=== PATIENT | male | born 1940 | race Caucasian/White ===

== ENCOUNTER 2017-07-07 09:38 | Emergency (ER) | payer MEDICARE, OTHER ==
[2017-07-07 09:53] VITALS: BP 143/82
--- NOTE | 2017-07-07 10:07 | UC ---
Hip/Pelvis Pain - HPI Summary HPI Summary: Pt presents with right hip pain for months. He tells me that over the last 3-4 months he has had right hip pain, but over the last week it seems to be getting more bothersome. He points to his pain and is pointing to the trochanter. He denies injury or fall. He has not been taking anything for pain. He describes the pain as a sharp "catching" pain and grinding at times. Denies fever, chills , numbness, tingling, or radiation of pain. No bowel or bladder loss. No dysuria. - History Of Current Complaint Chief Complaint: UCLowerExtremity Stated Complaint: SORE R HIP Time Seen by Provider: 07/07/17 10:06 Hx Obtained From: Patient Timing: Constant Severity Initially: Mild Severity Currently: Mild Pain Intensity: 1 Pain Scale Used: 0-10 Numeric Character Of Pain: Sharp, Aching Aggravating Factor(s): Movement Alleviating Factor(s): Rest, Position - Allergies/Home Medications Allergies/Adverse Reactions: Allergies Allergy/AdvReac Type Severity Reaction Status Date / Time No Known Allergies Allergy Verified 07/07/17 09:53 Home Medications: Home Medications Disulfiram TAB* [Antabuse 250 MG TAB*] 250 mg PO DAILY 07/07/17 [History Confirmed 07/07/17] PMH/Surg Hx/FS Hx/Imm Hx Previously Healthy: Yes Psychological History: Anxiety, Depression - Surgical History Surgical History: Yes Surgery Procedure, Year, and Place: APPENDECTOMY AND TONSILLECTOMY A CHILD. 1995 EXCISION OF LEFT LE[place]ST, [facility] [place]/2015 BILATERAL CATARACT EXTRACTION WITH IOL IMPLANTS, [facility] [place] - Family History Known Family History: Positive: None - Social History Occupation: Retired Lives: With Family Alcohol Use: None Substance Use Type: None Smoking Status (MU): Former Smoker Type: Cigarettes Amount Used/How Often: 1 PPD Length of Time of Smoking/Using Tobacco: 18 YEARS Have You Smoked in the Last Year: No When Did the Patient Quit Smoking/Using Tobacco: 1974 - Immunization History Most Recent Influenza Vaccination: 04/2017 Review of Systems Constitutional: Negative Skin: Negative Respiratory: Negative Cardiovascular: Negative Gastrointestinal: Negative Genitourinary: Negative Neurovascular: Negative Musculoskeletal: Other: - Right hip pain Neurological: Negative Psychological: Negative All Other Systems Reviewed And Are Negative: Yes Physical Exam Triage Information Reviewed: Yes Appearance: Well-Appearing, Well-Nourished Vital Signs: Initial Vital Signs Temp 97.4 F 07/07/17 09:43 Pulse 71 07/07/17 09:43 Resp 16 07/07/17 09:43 BP 143/82 07/07/17 09:43 Pulse Ox 98 07/07/17 09:43 Vital Signs Reviewed: Yes Respiratory: Positive: Chest non-tender, Lungs clear, Normal breath sounds Cardiovascular: Positive: RRR, Pulses Normal Musculoskeletal: Positive: Strength Intact - B/L hips and LEs, ROM Intact - B/L hips and LEs, No Edema, Other: - Right hip: TTP over trochanter. KANCHAN positive hip pain on right. Negative SLR. No obvious bony deformities. Neurological: Positive: Alert, Muscle Tone Normal, Other: - L3-S1 sensations intact b/l LEs. Psychological: Positive: Age Appropriate Behavior Skin: Negative: rashes Hip Injury Course/Dx - Course Course Of Treatment: Hip XR: IMPRESSION: MODERATE OSTEOARTHRITIS. NO ACUTE FINDINGS. Suspect trochanteric bursitis vs arthritis. For now will treat with po NSAIDs and refer to orthopedics for potential steroid injections. - Differential Dx/Diagnosis Differential Diagnosis/HQI/PQRI: Arthritis, Bursitis, Dislocation, Fracture, Sprain, Strain Provider Diagnoses: Right hip arthritis Discharge - Discharge Plan Condition: Stable Disposition: HOME Prescriptions: Meloxicam 7.5 mg PO BID PRN #20 tab PRN Reason: Pain Patient Education Materials: Arthritis (ED) Referrals: Candice Duncan MD [Primary Care Provider] - Cale Ross MD [Medical Doctor] - If Needed Additional Instructions: If you develop a fever, SOB, chest pain, new or worsening symptoms - please call your PCP or go to the ED. Your blood pressure was high at todays visit. Please see your primary provider within 4 weeks for recheck and re-evaluation. Please call the number below to schedule a follow up with orthopedics for further evaluation of your right hip pain.
--- NOTE | 2017-07-07 10:44 | RAD ---
INDICATION: Atraumatic right hip pain COMPARISON: None TECHNIQUE: An AP view of the pelvis and AP views of the hip in neutral and abducted position were obtained FINDINGS: Bones: There are no acute bony findings. Joint spaces: There is moderate symmetric narrowing about both hip joint spaces with sclerosis about the acetabula and mild hypertrophic change. There is convexity along the lateral femoral head and neck which predisposes to impingement. The pelvic ring appears intact.. SI joints/symphysis: The SI joints and symphysis are intact. Other: None IMPRESSION: MODERATE OSTEOARTHRITIS. NO ACUTE FINDINGS.
== END 2017-07-07 11:05 | disposition home or self-care (01) ==
LOC: UCEAST 09:38
DX: M16.11 Unilateral primary osteoarthritis, right hip (principal); Z87.891 Personal history of nicotine dependence
CPT/HCPCS: 99211; G0463

== ENCOUNTER 2017-10-03 12:24 | Emergency (ER) | payer MEDICARE, OTHER ==
[2017-10-03 12:35] VITALS: BP 135/69
--- NOTE | 2017-10-03 16:57 | UC ---
Back Pain HPI - HPI Summary HPI Summary: 77 y/o male with h/o lower back pain due to stenosis, DJD hip OA seen by ortho , PCP, undergoing PT which he states helps, was taking meloxicam which was greatly helpful, but ran out. + sore, stiff this AM, feeling better now but still painful. no bladder, bowel loss. no radiculopathy symptoms, pain in R hip joint and lower back - History of Current Complaint Chief Complaint: UCBackPain Stated Complaint: BACK AND HIP PAIN Time Seen by Provider: 10/03/17 13:05 Hx Obtained From: Patient Onset/Duration: Sudden Onset, Lasting Days Timing: Lasting Hours Severity Initially: Moderate Severity Currently: Moderate Pain Intensity: 2 Pain Scale Used: 0-10 Numeric - Allergies/Home Medications Allergies/Adverse Reactions: Allergies Allergy/AdvReac Type Severity Reaction Status Date / Time No Known Allergies Allergy Verified 10/03/17 12:35 PMH/Surg Hx/FS Hx/Imm Hx Previously Healthy: No - h/o lower back pain, DJD - Surgical History Surgical History: Yes Surgery Procedure, Year, and Place: APPENDECTOMY AND TONSILLECTOMY A CHILD. 1995 EXCISION OF LEFT LEG CYST, [facility] [place]. 11/2015 BILATERAL CATARACT EXTRACTION WITH IOL IMPLANTS, [facility] – [place] - Family History Known Family History: Positive: None - Social History Alcohol Use: None Alcohol Amount: 2-3 glasses of wine/day Substance Use Type: None Smoking Status (MU): Former Smoker Type: Cigarettes Amount Used/How Often: 1 PPD Length of Time of Smoking/Using Tobacco: 18 YEARS Have You Smoked in the Last Year: No When Did the Patient Quit Smoking/Using Tobacco: 1974 - Immunization History Most Recent Influenza Vaccination: 04/2017 Review of Systems Constitutional: Negative Musculoskeletal: Arthralgia, Myalgia Neurological: Negative Psychological: Negative Is Patient Immunocompromised?: No All Other Systems Reviewed And Are Negative: Yes Physical Exam Triage Information Reviewed: Yes Appearance: Well-Appearing, No Pain Distress, Well-Nourished Vital Signs: Initial Vital Signs Temp 97.6 F 10/03/17 12:32 Pulse 80 10/03/17 12:32 Resp 18 10/03/17 12:32 BP 135/69 10/03/17 12:32 Pulse Ox 99 10/03/17 12:32 Vital Signs Reviewed: Yes Musculoskeletal: Positive: Strength Intact, ROM Intact, Other: - mild + log roll R exsternal, neg straight leg test, patellar reflex R 1, L 2, PT pulses 2+ , neg homans, hip FF- 130, abd 40 without pain, no tenderness to palpation over lumbar, sacral spine, no back tenderness. Back Pain Course/Dx - Course Course Of Treatment: lower back pain, OA R hip- continue meloxicam, follow up with PCP, steroids for severe pain - Differential Dx/Diagnosis Provider Diagnoses: lower back pain, R hip OA Discharge - Discharge Plan Condition: Good Disposition: HOME Prescriptions: Meloxicam 7.5 mg PO BID PRN #20 tab PRN Reason: Pain methylPREDNISolone [Medrol Dosepak 4 MG*] 0 mg PO .SEE ROSALVA INSTRUCTION #1 rosalva Patient Education Materials: Osteoarthritis (ED), Lower Back Exercises (ED) Referrals: Daylin Graham MD [Medical Doctor] - Candice Duncan MD [Primary Care Provider] - Additional Instructions: - Continue stretches as shown and with PT - FOllow up with primary for meloxicam refills, blood work as needed - STeroids to help decrease inflammation, pain - GO to ER with loss of bowel, bladder function
== END 2017-10-03 13:20 | disposition home or self-care (01) ==
LOC: UCEAST 12:24
DX: M54.5 Low back pain (principal); M16.11 Unilateral primary osteoarthritis, right hip; Z87.891 Personal history of nicotine dependence
CPT/HCPCS: 99212; G0463

== ENCOUNTER 2018-06-30 14:25 | Emergency (ER) | payer MEDICARE, OTHER ==
[2018-06-30 14:48] VITALS: BP 112/78
--- NOTE | 2018-07-01 08:00 | UC ---
- Progress Note Progress Note: There was no x-ray ordered June 30, 2018 therefore there is no discrepancy. Course/Dx - Diagnoses Provider Diagnoses: Patient left without being seen Discharge - Sign-Out/Discharge Documenting (check all that apply): Patient Departure All imaging exams completed and their final reports reviewed: No Studies - Discharge Plan Condition: Stable Disposition: LEFT WITHOUT BEING SEEN Referrals: Candice Duncan MD [Primary Care Provider] - - Billing Disposition and Condition Condition: STABLE Disposition: Left Without Being Seen
== END 2018-06-30 16:30 | disposition left against medical advice (07) ==
LOC: UCEAST 14:25
DX: M54.5 Low back pain (principal); Z53.21 Procedure and treatment not carried out due to patient leaving prior to being seen by health care provider
CPT/HCPCS: 99211; G0463

== ENCOUNTER 2018-07-11 09:57 | Emergency (ER) | payer MEDICARE, OTHER ==
[2018-07-11 10:04] VITALS: BP 137/86
--- NOTE | 2018-07-11 10:19 | UC ---
Cardiac HPI - HPI Summary HPI Summary: Patient is 78 year old gentleman, who present today to the urgent care with left-sided rib pain for past 2 days. He reports that was raking leaves and states he thinks he over did it and is now having pain to left lower ribs. Points to it to 10th rib area and rates the pain as 9/10 when it gets worse. It hurts to take a deep breath. He is able to lie down on the affected side and has not taken any medications yet. Denies any fever, chills, cough. Denies any abdominal pain , nausea or vomiting , diarrhea or constipation. - History of Current Complaint Chief Complaint: UCUpperExtremity Stated Complaint: RIB PAIN Time Seen by Provider: 07/11/18 10:01 Hx Obtained From: Patient Pain Intensity: 9 - Allergy/Home Medications Allergies/Adverse Reactions: Allergies Allergy/AdvReac Type Severity Reaction Status Date / Time No Known Allergies Allergy Verified 07/11/18 10:04 PMH/Surg Hx/FS Hx/Imm Hx - Additional Past Medical History Additional PMH: Anxiety Depression ADHD Well controlled on Prozac and Wellbutrin Previously Healthy: Yes - Surgical History Surgical History: Yes Surgery Procedure, Year, and Place: APPENDECTOMY AND TONSILLECTOMY A CHILD. 1995 EXCISION OF LEFT LEG CYST, [facility] [place]. 11/2015 BILATERAL CATARACT EXTRACTION WITH IOL IMPLANTS, [facility] [place] - Family History Known Family History: Positive: None - Social History Alcohol Use: Daily Alcohol Amount: 2-3 glasses of wine/day Substance Use Type: None Smoking Status (MU): Former Smoker Type: Cigarettes Amount Used/How Often: 1 PPD Length of Time of Smoking/Using Tobacco: 18 YEARS Have You Smoked in the Last Year: No When Did the Patient Quit Smoking/Using Tobacco: 1974 - Immunization History Most Recent Influenza Vaccination: 04/2017 Review of Systems All Other Systems Reviewed And Are Negative: Yes Constitutional: Positive: Negative Skin: Positive: Negative Eyes: Positive: Negative ENT: Positive: Negative Respiratory: Positive: Shortness Of Breath - hurts to take a deep breath Cardiovascular: Positive: Chest Pain - Localized to 8-10 tripped on left side Gastrointestinal: Positive: Negative Genitourinary: Positive: Negative Motor: Positive: Negative Neurovascular: Positive: Negative Musculoskeletal: Positive: Negative Neurological: Positive: Negative Psychological: Positive: Negative Is Patient Immunocompromised?: No Physical Exam - Summary Physical Exam Summary: Physical Exam: Const: Appears well. No signs of apparent distress present. Alert and oriented x 3. Musculo: Walks with a normal gait. Head/Face: Atraumatic, normocephalic on inspection. Eyes: EOMI and PERRLA in both eyes. Conjunctivae clear. No discharge noted ENT: Hearing normal. Respiratory: Respirations are unlabored- his comfort with deep inspiration. Lungs clear to auscultation bilaterally, no wheezing , rhonchi or rales noted . There is tenderness to palpation on the anterior aspect of the eighth to 10th rib, most tenderness is noted at the 10th rib but he is also tender in the intercostal areas. CVS: Regular rate and Rhythm, S1S2 normal , no murmurs identified. Extremities: Peripheral circulation is grossly normal. Pulses 2+ Abdomen : Soft non tender , nondistended , Bowel sounds present . No guarding , rebound tenderness or rigidity noted. Skin: No lesions or rash located on the upper extremities or on the lower extremities. Neuro: Cranial nerves II to XII intact, motor and sensory intact. DTR Intact bilaterally. Mood is normal. Affect is normal. Triage Information Reviewed: Yes Vital Signs: Initial Vital Signs Temp 98.0 F 07/11/18 10:02 Pulse 97 07/11/18 10:02 Resp 18 07/11/18 10:02 BP 137/86 07/11/18 10:02 Pulse Ox 98 07/11/18 10:02 Vital Signs Reviewed: Yes Diagnostics - Radiology No standard instances Radiology Interpretation Completed By: Radiologist - X-ray of the chest and the left ribs: DISPLACED FRACTURES OF THE LEFT EIGHTH AND NINTH RIBS WITHOUT APPRECIABLE PNEUMOTHORAX. - Assessment/Plan Course Of Treatment: During the visit today, we obtained x-ray of the rib and the chest to rule out any fracture . X-ray of the left rib and chest: DISPLACED FRACTURES OF THE LEFT EIGHTH AND NINTH RIBS WITHOUT APPRECIABLE PNEUMOTHORAX. I also spoke to Dr. gil, fracture is about 30% displaced. Incentive spirometer provided to him today for breathing exercises. He will follow-up with his primary doctor in 2 days. He was advised to call [phone] images today if he develops any chest pain or shortness of breath. We discussed the findings which appeared to be consistent with intercostal strain and further plan. We discussed that he should take Tylenol or ibuprofen for pain relief and ice the area locally. He should continue to do breathing exercises. - Clinical Impression Provider Diagnosis: Left rib fracture Discharge - Sign-Out/Discharge Documenting (check all that apply): Patient Departure All imaging exams completed and their final reports reviewed: Yes - Discharge Plan Condition: Stable Disposition: HOME Patient Education Materials: Rib Fracture (ED) Referrals: Candice Duncan MD [Primary Care Provider] - 2 Days Additional Instructions: Please take ibuprofen or Tylenol as needed for pain Ice the area locally, 15 minutes at a time 3-4 times a day. Breathing exercises as discussed. Follow up with your primary care doctor in 2 days Return to Urgent care / ER if symptoms get worse. - Billing Disposition and Condition Condition: STABLE Disposition: Home
== END 2018-07-11 11:30 | disposition home or self-care (01) ==
LOC: UCEAST 09:57
DX: S22.42XA Multiple fractures of ribs, left side, initial encounter for closed fracture (principal); F90.9 Attention-deficit hyperactivity disorder, unspecified type; F41.9 Anxiety disorder, unspecified; F32.9 Major depressive disorder, single episode, unspecified; Z79.899 Other long term (current) drug therapy; Z87.891 Personal history of nicotine dependence
CPT/HCPCS: 99211; G0463

== ENCOUNTER 2018-07-12 11:32 | Emergency (ER) | payer MEDICARE, OTHER ==
[2018-07-12 11:50] VITALS: BP 135/71
--- NOTE | 2018-07-12 11:50 | UC ---
Truncal Trauma HPI - HPI Summary HPI Summary: 78 yo male presents with continued pain. He tells me that yesterday he was seen here and dx'd with rib fractures. Report is: X-ray of the left rib and chest: DISPLACED FRACTURES OF THE LEFT EIGHTH AND NINTH RIBS WITHOUT APPRECIABLE PNEUMOTHORAX. He was advised to take ibuprofen and tylenol for his discomfort. He was also provided with an incentive spirometer which he has been using. He has been taking ibuprofen with little relief. He had difficulty sleeping last night due to pain and trying to get comfortable. He denies any SOB, increased coughing, or cardiac type chest pain. - History Of Current Complaint Stated Complaint: RECHECK OF RIB FRACTURES Time Seen by Provider: 07/12/18 11:49 Hx Obtained From: Patient Onset/Duration: Sudden Onset Severity Initially: Moderate Severity Currently: Moderate Pain Intensity: 5 Pain Scale Used: 0-10 Numeric - Allergies/Home Medications Allergies/Adverse Reactions: Allergies Allergy/AdvReac Type Severity Reaction Status Date / Time No Known Allergies Allergy Verified 07/12/18 11:50 Home Medications: Home Medications Ibuprofen TAB* [Motrin TAB* 600 MG] 600 mg PO Q6H PRN 07/12/18 [History Confirmed 07/12/18] PMH/Surg Hx/FS Hx/Imm Hx Psychological History: Anxiety, Depression - Surgical History Surgical History: Yes Surgery Procedure, Year, and Place: APPENDECTOMY AND TONSILLECTOMY A CHILD. 1995 EXCISION OF LEFT LEG CYST, [facility] [place]. 11/2015 BILATERAL CATARACT EXTRACTION WITH IOL IMPLANTS, [facility] [place] - Family History Known Family History: Positive: None - Social History Occupation: Retired Lives: With Family Alcohol Use: Daily Alcohol Amount: 2-3 glasses of wine/day Substance Use Type: None Smoking Status (MU): Former Smoker Type: Cigarettes Amount Used/How Often: 1 PPD Length of Time of Smoking/Using Tobacco: 18 YEARS Have You Smoked in the Last Year: No When Did the Patient Quit Smoking/Using Tobacco: 1974 - Immunization History Most Recent Influenza Vaccination: 04/2017 Review of Systems All Other Systems Reviewed And Are Negative: Yes Constitutional: Positive: Negative Skin: Positive: Negative Respiratory: Positive: Negative Cardiovascular: Positive: Negative Gastrointestinal: Positive: Negative Neurovascular: Positive: Negative Musculoskeletal: Positive: Other: - Left rib pain Neurological: Positive: Negative Psychological: Positive: Negative Physical Exam - Summary Physical Exam Summary: GENERAL: NAD. WDWN. No pain distress. SKIN: No rashes, sores, lesions, or open wounds. NECK: Supple. Nontender. No lymphadenopathy. CHEST: CTAB. No r/r/w. No accessory muscle use. Breathing comfortably and in no distress. TTP at left anterior ribs ~8th. CV: Pulses intact. Cap refill <2seconds ABDOMEN: Soft. NTTP. No distention or guarding. Bowel sounds present NEURO: Alert. PSYCH: Age appropriate behavior. Triage Information Reviewed: Yes Vital Signs: Initial Vital Signs Temp 98.1 F 07/12/18 11:46 Pulse 73 07/12/18 11:46 Resp 16 07/12/18 11:46 BP 135/71 07/12/18 11:46 Pulse Ox 99 07/12/18 11:46 Vital Signs Reviewed: Yes Truncal Trauma Course/Dx - Course Course Of Treatment: Will have him keep taking ibuprofen and will have him add a lidoderm patch daily. Rx for norco to be used sparingly for severe pain or difficulty sleeping dt pain. Strongly advised he make a f/u appt with his PCP for later this week for a recheck of his discomfort. - Differential Dx/Diagnosis Provider Diagnosis: Left rib fracture Discharge - Sign-Out/Discharge Documenting (check all that apply): Patient Departure All imaging exams completed and their final reports reviewed: No Studies - Discharge Plan Condition: Stable Disposition: HOME Prescriptions: HYDROcodone/ACETAMIN 5-325 MG* [[place] 5-325 TAB*] 1 tab PO BID PRN #6 tab MDD 2 PRN Reason: Pain Lidocaine PATCH 5%* [Lidoderm 5% Patch*] 1 patch TRANSDERM DAILY PRN #1 box PRN Reason: Pain Patient Education Materials: Rib Fracture (ED) Referrals: Candice Duncan MD [Primary Care Provider] - 1 Week Additional Instructions: If you develop a fever, shortness of breath, chest pain, new or worsening symptoms - please call your PCP or go to the ED. 1) Continue taking ibuprofen 2) Use the pain patch for pain relief and try not to use the [place] oral pain medication unless needed 3) Schedule a follow up appointment for this week with your Primary Doctor for a recheck - Billing Disposition and Condition Condition: STABLE Disposition: Home - Attestation Statements Provider Attestation: I was available for consult. This patient was seen by the [facility]. The patient was not presented to, seen by, or examined by me. -Kesha
== END 2018-07-12 12:05 | disposition home or self-care (01) ==
LOC: UCEAST 11:32
DX: Z51.89 Encounter for other specified aftercare (principal); S22.32XD Fracture of one rib, left side, subsequent encounter for fracture with routine healing; Z87.891 Personal history of nicotine dependence
CPT/HCPCS: 99212; G0463

== ENCOUNTER 2018-11-26 13:52 | Emergency (ER) | payer MEDICARE, OTHER ==
[2018-11-26] MEDS ORDERED: Acetaminophen TAB* 325 MG PO ONE (14:40)
--- NOTE | 2018-11-26 15:06 | UC ---
Shoulder Pain HPI - HPI Summary HPI Summary: 78 yo male present with what he thinks is muscular right shoulder pain States he was using a wheelbarrow all morning. He went inside to shower He developed pain in region of right lateral scapula radiating to axilla and medial right arm pain is spasmotic his arm has certain areas that are tender to touch no CP No SOB No n/v no abd pain No f/c - History of Current Complaint Chief Complaint: UCBackPain Stated Complaint: RT SHOULDER PAIN Time Seen by Provider: 11/26/18 13:55 Onset/Duration: Sudden Onset Timing: Hours Severity Initially: Severe Severity Currently: Severe Location Of Pain: Is Discrete @ - see image, Radiates To - right medal arm Pain Intensity: 7 Pain Scale Used: 0-10 Numeric Character: Throbbing, Spasmodic Aggravating Factor(s): Other - touch Alleviating Factor(s): Nothing Associated Signs And Symptoms: Negative: Swelling, Redness, Bruising, Fever, Weakness, Numbness/Tingling Related History: Dominant Hand Right Torso: 1 - tender 2 - tender - Allergies/Home Medications Allergies/Adverse Reactions: Allergies Allergy/AdvReac Type Severity Reaction Status Date / Time No Known Allergies Allergy Verified 07/12/18 11:50 Home Medications: Home Medications Cholecalciferol TAB* [Vitamin D TAB*] 1,000 unit PO DAILY 11/26/18 [History Confirmed 11/26/18] PMH/Surg Hx/FS Hx/Imm Hx Previously Healthy: Yes Psychological History: Depression - Surgical History Surgical History: Yes Surgery Procedure, Year, and Place: APPENDECTOMY AND TONSILLECTOMY A CHILD. 1995 EXCISION OF LEFT LEG CYST, [facility] [place]. 11/2015 BILATERAL CATARACT EXTRACTION WITH IOL IMPLANTS, [facility] [place] - Family History Known Family History: Positive: None, Non-Contributory - Social History Alcohol Use: Daily Alcohol Amount: 2-3 glasses of wine/day Substance Use Type: None Smoking Status (MU): Former Smoker Type: Cigarettes Amount Used/How Often: 1 PPD Length of Time of Smoking/Using Tobacco: 18 YEARS Have You Smoked in the Last Year: No When Did the Patient Quit Smoking/Using Tobacco: 1974 - Immunization History Most Recent Influenza Vaccination: 04/2017 Review of Systems All Other Systems Reviewed And Are Negative: Yes Constitutional: Positive: Negative Skin: Positive: Negative Eyes: Positive: Negative ENT: Positive: Negative Respiratory: Positive: Negative Cardiovascular: Positive: Negative Gastrointestinal: Positive: Negative Genitourinary: Positive: Negative Motor: Positive: Negative Neurovascular: Positive: Negative Musculoskeletal: Positive: Myalgia - see image Neurological: Positive: Negative Psychological: Positive: Negative Physical Exam Triage Information Reviewed: Yes Appearance: Well-Appearing, No Pain Distress, Well-Nourished Vital Signs: Initial Vital Signs Temp 98.6 F 11/26/18 13:58 Pulse 74 11/26/18 13:58 Resp 19 11/26/18 13:58 BP 189/89 11/26/18 13:58 Pulse Ox 96 11/26/18 13:58 Vital Signs Reviewed: Yes Eyes: Positive: Conjunctiva Clear ENT: Positive: Hearing grossly normal. Negative: Nasal congestion, Nasal drainage, Trismus, Muffled voice, Hoarse voice Dental: Positive: Percussion Tenderness @ Neck: Positive: Supple, Nontender, No Lymphadenopathy, Other: - no bruits Respiratory: Positive: Lungs clear, Normal breath sounds, No respiratory distress, No accessory muscle use Cardiovascular: Positive: RRR, No Murmur, Pulses Normal Abdomen Description: Positive: Nontender, No Organomegaly, Soft Bowel Sounds: Positive: Present Musculoskeletal: Positive: ROM Intact, No Edema, Other: - see image for tender areas Neurological: Positive: Alert Psychological Exam: Normal Skin Exam: Normal Diagnostics - Radiology No standard instances Radiology Interpretation Completed By: Radiologist Summary of Radiographic Findings: OSTEOARTHRITIS. NO ACUTE OSSEOUS INJURY. IF SYMPTOMS PERSIST, RECOMMEND REPEAT IMAGING. - EKG Cardiac Rate: NL Cardiac Rhythm: Sinus: Normal ST Segment: Normal Shoulder Course/Dx - Course Course Of Treatment: 2Nd EKG- Normal - Differential Dx/Diagnosis Provider Diagnosis: Muscle strain of right scapular region, Elevated BP without diagnosis of hypertension Discharge - Sign-Out/Discharge Documenting (check all that apply): Patient Departure All imaging exams completed and their final reports reviewed: Yes - Discharge Plan Condition: Stable Disposition: HOME Patient Education Materials: Muscle Strain (ED) Referrals: Candice Duncan MD [Primary Care Provider] - 3 Days Additional Instructions: take another aleve when you get home then 1-2 aleve twice daily for pain To ER for new or worsening symptoms - Billing Disposition and Condition Condition: STABLE Disposition: Home
[2018-11-26 15:14] VITALS: BP 170/76
== END 2018-11-26 15:54 | disposition home or self-care (01) ==
LOC: UCEAST 13:52
DX: S46.811A Strain of other muscles, fascia and tendons at shoulder and upper arm level, right arm, initial encounter (principal); R03.0 Elevated blood-pressure reading, without diagnosis of hypertension; M19.011 Primary osteoarthritis, right shoulder; X50.9XXA Other and unspecified overexertion or strenuous movements or postures, initial encounter; Z87.891 Personal history of nicotine dependence
CPT/HCPCS: 99212; A9270-GY; G0463

== ENCOUNTER 2018-11-27 10:53 | Emergency (ER) | payer MEDICARE, OTHER ==
--- NOTE | 2018-11-27 11:12 | ED ---
Upper Extremity Pain - HPI Summary HPI Summary: This patient is a 78 year old male presenting to [facility] with a chief complaint of right shoulder pain one day ago. He states he was working in his garden moving around when he felt the pain. He thinks it may be a muscle pull. He says the pain is in his "shoulder blade" and will radiate to his upper arm and sometimes lower arm. He denies chest pain, neck pain,lower extremity pains, SI, HI, and shortness of breath. The patient has a Hx of left shoulder replacement. The patient states he may have taken too may painkillers, acetomenaphine and ibuprofen. In room BP is 163/100, HR is 75 BPM. Patient was seen at [facility] yesterday. He received a right scapula XR osteoarthritis , with an impression of no acute osseous injury. His vital signs yesterday were 189/89 HR 74. Vitamin B12 FLUoxetine CAP* [PROzac CAP*] 10 mg PO QAM 07/26/15 [History Confirmed 11/26/18] buPROPion HCl [Wellbutrin Sr] 300 mg PO QPM 11/27/15 [History Confirmed 11/26/18 ] Cholecalciferol TAB* [Vitamin D TAB*] 1,000 unit PO DAILY 11/26/18 [History Confirmed 11/26/18] - History of Current Complaint Chief Complaint: EDExtremityUpper Stated Complaint: BACK, SHOULDER PAIN PER PT Time Seen by Provider: 11/27/18 10:56 Hx Obtained From: Patient Onset/Duration: Started Hours Ago Timing: Constant Severity Initially: Mild Severity Currently: None Pain Location: Shoulder, Arm Alleviating Factor(s): OTC Meds - Allergies/Home Medications Allergies/Adverse Reactions: Allergies Allergy/AdvReac Type Severity Reaction Status Date / Time No Known Allergies Allergy Verified 11/27/18 10:58 PMH/Surg Hx/FS Hx/Imm Hx Endocrine/Hematology History: Denies: Hx Diabetes, Hx Thyroid Disease Cardiovascular History: Denies: Hx Hypertension, Hx Pacemaker/ICD Respiratory History: Denies: Hx Asthma, Hx Chronic Obstructive Pulmonary Disease (COPD) GI History: Denies: Hx Ulcer History: Denies: Hx Renal Disease Musculoskeletal History: Reports: Other Musculoskeletal History - CYST LEFT KNEE Sensory History: Reports: Hx Cataracts - HX OF, Hx Contacts or Glasses - GLASSES , Hx Hearing Aid - BILATERAL Opthamlomology History: Reports: Hx Cataracts - HX OF, Hx Contacts or Glasses - GLASSES Psychiatric History: Reports: Hx Anxiety - CONTROL WITH MED, Hx Depression - CONTROL WITH MEDS Denies: Hx Panic Disorder - Surgical History Surgery Procedure, Year, and Place: APPENDECTOMY AND TONSILLECTOMY A CHILD. 1995 EXCISION OF LEFT LEG CYST, [facility]. 11/2015 BILATERAL CATARACT EXTRA[place] [facility] [place] Hx Anesthesia Reactions: No Infectious Disease History: No Infectious Disease History: Denies: Hx Clostridium Difficile, Hx Hepatitis, Hx Human Immunodeficiency Virus (HIV), Hx of Known/Suspected MRSA, Hx Shingles, Hx Tuberculosis, Hx Known/ Suspected VRE, Hx Known/Suspected VRSA, History Other Infectious Disease, Traveled Outside the [place] in Last 30 Days - Family History Known Family History: Positive: Other - Parkinsons disease-mother Leukemia- Father Negative: Hypertension - Social History Alcohol Use: Daily Alcohol Amount: 2-3 glasses of wine/day Substance Use Type: Reports: None Smoking Status (MU): Former Smoker Type: Cigarettes Amount Used/How Often: 1 PPD Length of Time of Smoking/Using Tobacco: 18 YEARS Have You Smoked in the Last Year: No Review of Systems Negative: Chest Pain Negative: Shortness Of Breath Positive: Other - Right Shoulder/arm pain, Denies all other pain. Positive: Other - Denies HI, SI All Other Systems Reviewed And Are Negative: Yes Physical Exam - Summary Physical Exam Summary: Appearance: Ill-appearing, moderate pain distress, well-nourished Skin: Warm, color reflects adequate perfusion, dry. Healing abrasions on his nose and dorsal left forearm. Head: Normal Head/Face inspection, atraumatic Eyes: Conjunctiva clear ENT: Normal inspection Neck: Supple, no nodes, no JVD Respiratory: Lungs clear, normal breath sounds, no respiratory distress. Slightly increased tenderness with deep breaths. Cardio: RRR, No murmur, pulses normal, brisk capillary refill Abdomen: Soft, nontender Bowel sounds: Present Musculoskeletal: Strength Intact/ROM intact, no calf tenderness, no edema.Slightly increased right shoulder A.C. joint tenderness with deep breaths. Psychological: Normal Neuro: Alert, muscle tone normal, no focal deficit Triage Information Reviewed: Yes Vital Signs On Initial Exam: Initial Vitals Temp Pulse Resp BP Pulse Ox 98.0 F 80 14 164/100 97 11/27/18 10:55 11/27/18 10:55 11/27/18 10:55 11/27/18 10:55 11/27/18 10:55 Vital Signs Reviewed: Yes Diagnostics - Vital Signs Vital Signs Temp Pulse Resp BP Pulse Ox 11/27/18 10:55 98.0 F 80 14 164/100 97 - Laboratory Result Diagrams: 11/27/18 11:30 11/27/18 11:30 Lab Statement: Any lab studies that have been ordered have been reviewed, and results considered in the medical decision making process. - Radiology CXR Radiology Interpretation Completed By: Radiologist Summary of Radiographic Findings: CXR reveals no evidence for active cardiopulmonary disease. ED Provider has reviewed this report. Rt Shoulder XR Radiology Interpretation Completed By: Radiologist Summary of Radiographic Findings: Right Shoulder XR reveals severe osteoarthritic change in the glenohumaral joint. ED Provider has reviewed this report. Re-Evaluation - Re-Evaluation First Eval Re-Evaluation Time: 13:48 Change: Improved Comment: Discussed plan for discharge with patient. BP 160/108, HR 86, pain has improved after IV medication. Course/Dx - Course Course Of Treatment: This patient is a 78 year old male presenting to [facility] with a chief complaint of right shoulder pain one day ago. Vital signs reviewed. Medications reviewed. Labs reveal Hct 41 L, MCV 99 H, MCH 34 H, Absolute Lymphs (auto) 0.9 L, Total Creatine Kinase 224 H, CK-MB (CK-2) 6.7 H, B -Natriuretic Peptide 103 H, Urine Blood 1+ A. Right Shoulder XR reveals severe osteoarthritic change in the glenohumaral joint. CXR reveals no evidence for active cardiopulmonary disease. Patient was administered 30 mg Toradol via IV to manage pain. Patient was given metropolol succinate 50 MG PO and a plan for discharge was discussed with the patient and he was instructed to return to the emergency department with any new or worsening symptoms. The patient was agreeable with this plan. - Diagnoses Provider Diagnoses: Osteoarthritis of right shoulder, Elevated blood pressure reading without diagnosis of hypertension Discharge - Sign-Out/Discharge Documenting (check all that apply): Patient Departure - Discharge Patient Received Moderate/Deep Sedation with Procedure: No - Discharge Plan Condition: Stable Disposition: HOME Patient Education Materials: Osteoarthritis (ED) Referrals: Candice Duncan MD [Primary Care Provider] - Additional Instructions: Return to the emergency department for new or worsening symptoms. - Attestation Statements Document Initiated by Scribe: Yes Documenting Scribe: John Nuno Provider For Whom Scribe is Documenting (Include Credential): No Rodriguez MD Scribe Attestation: John Chambers, scribed for No Rodriguez MD on 11/27/18 at 1332. Status of Scribe Document: Ready
[2018-11-27] MEDS ORDERED: Ketorolac INJ* 30 MG/ML 1 ML VIAL IV PUSH ONE (11:18)
[2018-11-27 11:43] LABS: ABS Lymphocytes 0.9 10^3/ul (1.0-4.8); ABS Monocytes 0.5 10^3/ul (0-0.8); ABS Neutrophils 3.2 10^3/ul (1.5-7.7); Eosinophil % 0.2 %; Hematocrit 41 % (42-52); Hemoglobin 14.3 g/dL (14.0-18.0); Lymphocyte % 19.5 %; Mean Corpuscular HGB Conc 35 g/dL (31-36); Mean Corpuscular Hemoglobin 34 pg (27-31); Mean Corpuscular Volume 99 fL (80-94); Mean Platelet Volume 7.5 fL (7.4-10.4); Nucleated Red Blood Cells % 0.1; Platelet Count 215 10^3/uL (150-450); Red Blood Count 4.19 10^6 /uL (4.18-5.48); Red Cell Distribution Width 14 % (10.5-15); White Blood Count 4.7 10^3/uL (3.5-10.8)
[2018-11-27 11:59] LABS: Activated Partial Thrombo Time 27.6 seconds (26.0-36.3); INR 0.87 (0.82-1.09)
[2018-11-27 12:03] LABS: ALT 17 U/L (7-52); AST 28 U/L (13-39); Albumin 4.2 g/dL (3.2-5.2); Albumin/Globulin Ratio 1.8 (1-3); Alkaline Phosphatase 58 U/L (34-104); Anion Gap 7 mmol/L (2-11); BUN/Creatinine Ratio 19.3 (8-20); Blood Urea Nitrogen 16 mg/dL (6-24); CO2 Carbon Dioxide 28 mmol/L (22-32); Calcium 9.6 mg/dL (8.6-10.3); Chloride 101 mmol/L (101-111); Creatine Kinase 224 U/L (10-223); EGFR African American 107.9 (>60); EGFR Non-African American 89.1 (>60); Globulin 2.4 g/dL (2-4); Glucose 138 mg/dL (70-100); Magnesium 2.1 mg/dL (1.9-2.7); Potassium 4.4 mmol/L (3.5-5.0); Sodium 136 mmol/L (135-145); Total Protein 6.6 g/dL (6.4-8.9)
[2018-11-27 12:04] LABS: Alcohol < 10 mg/dL (<10); CKMB ng/mL 6.7 ng/mL (0.6-6.3)
[2018-11-27 12:16] LABS: Urine Appearance Clear; Urine Bacteria Absent (Absent); Urine Bilirubin Negative (Negative); Urine Blood 1+ (Negative); Urine Color Yellow; Urine Glucose Negative (Negative); Urine Ketones Negative (Negative); Urine Nitrite Negative (Negative); Urine Protein Negative (Negative); Urine Red Blood Cell Trace(0-2/hpf) (Absent); Urine Urobilinogen Negative (Negative); Urine White Blood Cell Absent (Absent)
[2018-11-27] MEDS ORDERED: Metoprolol Succinate XL TAB* 50 MG PO ONE (13:55)
[2018-11-27 14:09] VITALS: BP 144/102
== END 2018-11-27 14:08 | disposition home or self-care (01) ==
LOC: ED 10:53
DX: M19.011 Primary osteoarthritis, right shoulder (principal); R03.0 Elevated blood-pressure reading, without diagnosis of hypertension; F41.9 Anxiety disorder, unspecified; F32.9 Major depressive disorder, single episode, unspecified; R94.31 Abnormal electrocardiogram [ECG] [EKG]; Z79.899 Other long term (current) drug therapy; Z87.891 Personal history of nicotine dependence
CPT/HCPCS: 36415; 71045; 80053; 80320; 81003; 81015; 82550; 82553; 83605; 83735; 83880; 84484; 85025; 85379; 85610; 85730; 93005; 96374; 99283; A9270-GY; G0480; J1885

== ENCOUNTER 2019-03-03 09:59 | Emergency (ER) | payer MEDICARE, OTHER ==
[2019-03-03 10:08] VITALS: BP 138/89
--- NOTE | 2019-03-03 10:31 | UC ---
Lower Extremity/Ankle HPI - HPI Summary HPI Summary: 79 year old male with no PMH, denies DM, denies poor wound healing- presents with laceration after stepping down onto a step that had a rough edge, cutting into his posterior heel, that occurred ~ 2 weeks ago while visiting [place]- patient was caring for dying and was unable to attend to his wound. Denies pain, ambulatory well, no fever, chills. Patient denies weakness, numbness. + drainage- yellow, + redness around site. UTD on tetanus per patient. - History of Current Complaint Chief Complaint: UCSkin Stated Complaint: LT HEEL LAC Time Seen by Provider: 03/03/19 10:16 Hx Obtained From: Patient Onset/Duration: Sudden Onset, Lasting Weeks - 2 weeks ago Severity Initially: Mild Severity Currently: Mild Pain Intensity: 2 Pain Scale Used: 0-10 Numeric Aggravating Factor(s): Nothing Alleviating Factor(s): Rest Able to Bear Weight: No - Allergies/Home Medications Allergies/Adverse Reactions: Allergies Allergy/AdvReac Type Severity Reaction Status Date / Time No Known Allergies Allergy Verified 03/03/19 10:08 PMH/Surg Hx/FS Hx/Imm Hx Previously Healthy: Yes - Surgical History Surgical History: Yes Surgery Procedure, Year, and Place: APPENDECTOMY AND TONSILLECTOMY A CHILD. [place] [facility] [place]IL[place]AL [place] [facility] [place] [facility] [place] Left [place] replacement - Family History Known Family History: Positive: None, Other - Parkinson's disease-mother; Leukemia- Father, Non-Contributory Negative: Hypertension - Social History Alcohol Use: Daily Alcohol Amount: 2-3 glasses of wine/day Substance Use Type: None Smoking Status (MU): Former Smoker Type: Cigarettes Amount Used/How Often: 1 PPD Length of Time of Smoking/Using Tobacco: 18 YEARS Have You Smoked in the Last Year: No When Did the Patient Quit Smoking/Using Tobacco: 1974 - Immunization History Most Recent Influenza Vaccination: 04/2017 Review of Systems All Other Systems Reviewed And Are Negative: Yes Constitutional: Positive: Negative Skin: Positive: Other - drainage from laceration site Musculoskeletal: Negative: Arthralgia, Decreased ROM, Edema, Myalgia Is Patient Immunocompromised?: No Physical Exam Triage Information Reviewed: Yes Appearance: Well-Appearing, No Pain Distress, Well-Nourished Vital Signs: Initial Vital Signs Temp 98 F 03/03/19 10:04 Pulse 77 03/03/19 10:04 Resp 16 03/03/19 10:04 BP 138/89 03/03/19 10:04 Pulse Ox 100 03/03/19 10:04 Vital Signs Reviewed: Yes Eyes: Positive: Conjunctiva Clear Musculoskeletal: Positive: Strength Intact, ROM Intact - AROM/ PROM of L foot, ankle without pain. neg homans. neg achillies testing., Edema @ - minimal posterior calc. Neurological: Positive: Alert, Other: - SITLT distal to ankle, L foot Psychological Exam: Normal Skin: Positive: Other - ~ 3cm laceration posterior ankle just below achillies insertion, non-tender to touch, + mild edema around incision with light erythema. minimal serous drainge noted. Lower Extremity Course/Dx - Course Course Of Treatment: radiograph: Patient Name: JOSE ESPINOZA III Medical Record#: [id number] Ordering Physician: Christie BOX Acct.#: [id number] : 1940 Age: 79 Sex: M Location: [facility] Exam Date: 03/03/19 1023 ADM Status: REG ER Order Information: ANKLE LEFT 3+VWS Accession Number: [id number] CPT: 64324 Indication: Left heel evaluation. 3 views of the left ankle is reviewed. Ankle mortise is intact. There is a focal defect in the skin at the dorsal aspect of the calcaneus. No abnormal erosions are noted. IMPRESSION: No abnormal erosions are noted. Soft tissue defect is noted in the dorsal aspect of the heel. - Radiograph negative. - Follow up with orthopedics for continued management- within 3-5 days - Antibiotics started- continue until seen by Orthopedic. - Return with increasing redness, swelling, pain, fever, numbness/ tingling or increase in redness. - Differential Dx/Diagnosis Differential Diagnosis/HQI/PQRI: Cellulitis, Fracture (Closed), Fracture (Open) , Sprain, Strain Provider Diagnosis: Cellulitis Discharge - Sign-Out/Discharge Documenting (check all that apply): Patient Departure All imaging exams completed and their final reports reviewed: Yes - Discharge Plan Condition: Good Disposition: HOME Prescriptions: Cephalexin CAP* [Keflex CAP*] 500 mg PO QID #28 cap Patient Education Materials: Cephalexin (By mouth), Cellulitis (ED), Laceration Without Closure (ED) Referrals: Candice Duncan MD [Primary Care Provider] - Additional Instructions: Wound, lower ankle - Radiograph negative for osteomyelitis. - Follow up with orthopedics for continued management- within 3-5 days - Antibiotics started- continue until seen by Orthopedic. - Return with increasing redness, swelling, pain, fever, numbness/ tingling or increase in redness. - Elevate foot as much as possible. Wear shoes without backs to avoid irritation. - change dressing as shown once daily or more frequently if sweating, working outside. - No swimming/ soaking/ submerging wound. OK to shower. - Billing Disposition and Condition Condition: GOOD Disposition: Home - Attestation Statements Provider Attestation: I was available for consult. This patient was seen by the [facility]. The patient was not presented to, seen by, or examined by me. Benito Slade MD
== END 2019-03-03 11:45 | disposition home or self-care (01) ==
LOC: UCEAST 09:59
DX: S91.312A Laceration without foreign body, left foot, initial encounter (principal); W26.9XXA Contact with unspecified sharp object(s), initial encounter; Y92.9 Unspecified place or not applicable; Z87.891 Personal history of nicotine dependence
CPT/HCPCS: 99212; G0463